=== PATIENT | male | born 1955 | race Caucasian/White ===

== ENCOUNTER 2017-12-01 05:45 | Day surgery (SDC) | payer OTHER ==
[2017-12-01] MEDS ORDERED: SOD CHLORIDE 0.9% 1,000 ML IV (06:00)
[2017-12-01] MEDS ORDERED: CEFAZOLIN 2 GM/50 ML (PMX) 50 ML IVPB (06:00)
[2017-12-01] MEDS ORDERED: FENTAnyl 50 MCG/ML VIAL (07:41)
[2017-12-01] MEDS ORDERED: ROPIVACAINE 0.5 % 30 ML VIAL (07:42)
[2017-12-01] MEDS ORDERED: PHENYLephrine (100 MCG/ML) 5ML SYG (08:06)
[2017-12-01] MEDS ORDERED: SUGAMMADEX SODIUM 200 MG/2 ML VIAL IV (08:07)
[2017-12-01] MEDS ORDERED: SUCCINYLCHOLINE CHLORIDE 100 MG/5 ML SYG IV (08:07)
[2017-12-01] MEDS ORDERED: CEFAZOLIN 1 GM INJ (08:07)
[2017-12-01] MEDS ORDERED: LIDOCAINE 100 MG SYRINGE (08:07)
[2017-12-01] MEDS ORDERED: PROPOFOL 20 ML (08:07)
[2017-12-01] MEDS ORDERED: ROCURONIUM 50 MG INJ (08:07)
[2017-12-01] MEDS: POLYMYXIN/BACITRACIN 1L IRRIG IRR (08:14)
[2017-12-01] MEDS ORDERED: FENTAnyl 50 MCG/ML VIAL IV ×2 (08:30)
[2017-12-01] MEDS ORDERED: METOCLOPRAMIDE 10 MG INJ IV (08:30)
[2017-12-01] MEDS ORDERED: MEPERIDINE 25 MG INJ IV (08:30)
[2017-12-01] MEDS ORDERED: DIPHENHYDRAMINE 50 MG INJ IV (08:30)
[2017-12-01] MEDS ORDERED: HYDROmorphONE (0.2 MG/ML) 10ML SYG IV ×3 (08:30)
[2017-12-01] MEDS: BUPIVACAINE 0.25% (MPF) 30 ML INJ ×2 (08:46)
[2017-12-01] MEDS ORDERED: HYDROCODONE/APAP (5/325) TAB PO ×2 (09:00)
[2017-12-01] MEDS ORDERED: IBUPROFEN 600 MG TAB PO (09:00)
[2017-12-01] MEDS ORDERED: morphine 2 MG INJ IV (09:00)
[2017-12-01] MEDS ORDERED: ONDANSETRON 4 MG INJ IV (09:00)
[2017-12-01] MEDS ORDERED: KETOROLAC 30 MG INJ IV (09:00)
[2017-12-01] MEDS: ONDANSETRON 4 MG INJ IV (09:43)
== END 2017-12-01 11:30 | disposition home or self-care (01) ==
LOC: SDS 05:45
DX: K42.0 Umbilical hernia with obstruction, without gangrene (principal); E66.9 Obesity, unspecified; Z68.28 Body mass index [BMI] 28.0-28.9, adult
CPT/HCPCS: 49587; 71045; 88302